=== PATIENT | female | born 1945 | race African-American/Black ===

== ENCOUNTER 2021-06-26 14:37 | Inpatient (IN) ==
[2021-06-26] MEDS ORDERED: SODIUM CHLORIDE 0.9% 1,000 ML IV STA (16:23)
[2021-06-26 17:34] LABS: Basophils % 0.7 % (0.0-0.8); Eosinophils % 0.7 % (0.00-10.9); Hematocrit 19.8 VOL% (35.7-47.0); Immature Granulocytes % 2.6 %; Immature Granulocytes Absolute 0.08 #; Lymphocytes # 0.8 10*3/uL (1.4-4.0); Lymphocytes % 27.1 % (21.3-54.2); Mean Corpuscular HGB Conc 29.8 GM/DL (32-36); Mean Corpuscular Volume 105.9 FL (87-102); Mean Platelet Volume 12.6 FL (9.6-12.0); Monocytes % 22.4 % (1.7-12.7); NRBC # 11.41 10*3/uL; Neutrophils % 46.5 % (38.7-73.9); Platelet Count 147 T/CUMM (130-400); Red Blood Count 1.87 MC/CUMM (3.8-5.5); Red Cell Distribution Width 23.6 % (9.3-17.3)
[2021-06-26 17:44] LABS: Hemoglobin 5.9 GM/DL (12.0-16.0)
[2021-06-26 18:00] LABS: Urine Appearance Clear (Clear); Urine Color Yellow (Yellow)
[2021-06-26 18:01] LABS: Bilirubin,Urine Large mg/dL (Negative); Blood, Urine Negative (Negative); Glucose,Urine (UA) Negative (Negative); Ketones,Urine Negative (Negative); Nitrite,Urine Negative (Negative); Protein,Urine Trace MG/DL; Urine Urobilinogen 0.2 EU/DL (<2.0)
[2021-06-26 20:02] LABS: Lymphocytes 42 % (20-55); Nucleated Red Blood Cells 283 (0-5); Segmented Neutrophils 55 % (50-85); Total Cells Counted 100
[2021-06-26 20:03] LABS: Anisocytosis 2+; Polychromasia 1+
[2021-06-26 20:04] LABS: Platelet Estimate Normal; Target Cells 1+
[2021-06-26 20:19] LABS: Albumin 1.4 G/DL (3.4-5.0); Osmolality,Calculated 298.2 MOS/KG (273-304); Potassium 4.8 MMOL/L (3.5-5.1); Total Protein 5.1 G/DL (6.4-8.2)
[2021-06-26 20:21] LABS: Bilirubin,Total 31.52 MG/DL (0.20-1.00)
[2021-06-26] MEDS ORDERED: BISACODYL 5 MG TABLET PO PRN (20:39)
[2021-06-26] MEDS ORDERED: ONDANSETRON 4 MG/2 ML VIAL IV PRN (20:39)
[2021-06-26] MEDS ORDERED: hydrALAZINE 20 MG/1 ML VIAL IV PRN (20:39)
[2021-06-26] MEDS ORDERED: GLUCAGON 1 MG VIAL IM PRN (20:39)
[2021-06-26] MEDS ORDERED: PROMETHAZINE 25 MG/1 ML VIAL IV PRN (20:39)
[2021-06-26] MEDS ORDERED: SODIUM CHLORIDE 0.9% 1,000 ML IV PRN (20:47)
[2021-06-26] MEDS ORDERED: DEXTROSE 10% 250 ML BAG IV PRN (20:50)
[2021-06-26] MEDS ORDERED: PROMETHAZINE INJ 12.5 MG in SODIUM CHLORIDE 0.9% 50 ML IV PRN (20:58)
[2021-06-26] MEDS ORDERED: oxyCODONE/ACETAMINOPHEN 5-325 MG TABLET PO PRN (21:20)
[2021-06-26] MEDS: INSULIN LISPRO 100 UNIT/ML SUBCUT SCH (22:56)
[2021-06-26] MEDS: DOCUSATE SODIUM 100 MG CAPSULE PO SCH (22:58)
[2021-06-27 08:24] LABS: Basophils % 0.4 % (0.0-0.8); Eosinophils % 0.8 % (0.00-10.9); Hematocrit 32.6 VOL% (35.7-47.0); Immature Granulocytes % 2.7 %; Immature Granulocytes Absolute 0.07 #; Lymphocytes # 1.1 10*3/uL (1.4-4.0); Lymphocytes % 42.8 % (21.3-54.2); Mean Corpuscular HGB Conc 31.9 GM/DL (32-36); Mean Corpuscular Volume 96.7 FL (87-102); Mean Platelet Volume 11.5 FL (9.6-12.0); NRBC # 13.95 10*3/uL; Neutrophils % 39.3 % (38.7-73.9); Platelet Count 159 T/CUMM (130-400); Red Cell Distribution Width 20.3 % (9.3-17.3); White Blood Count 2.6 T/CUMM (4-12)
[2021-06-27 08:41] LABS: Hemoglobin 10.4 GM/DL (12.0-16.0); Red Blood Count 3.37 MC/CUMM (3.8-5.5)
[2021-06-27] MEDS: INSULIN LISPRO 100 UNIT/ML SUBCUT SCH ×4 (08:48→21:01)
[2021-06-27] MEDS: SODIUM CHLORIDE 0.9% 1,000 ML IV SCH ×5 (08:49→21:40)
[2021-06-27 08:57] LABS: Albumin 1.6 G/DL (3.4-5.0); Calcium 9.8 MG/DL (8.5-10.1); Potassium 4.4 MMOL/L (3.5-5.1); Total Protein 5.6 G/DL (6.4-8.2)
[2021-06-27 09:00] LABS: Band Neutrophils 1 % (0-10); Eosinophils 2 % (0-10); Hypochromia Slight; Lymphocytes 46 % (20-55); Microcytosis Slight; Nucleated Red Blood Cells 478 (0-5); Platelet Estimate Adequate; Segmented Neutrophils 40 % (50-85); Total Cells Counted 100
[2021-06-27] MEDS ORDERED: LEVOTHYROXINE 88 MCG TABLET PO SCH (09:00)
[2021-06-27 09:02] LABS: Bilirubin,Total 29.6 MG/DL (0.20-1.00)
[2021-06-27] MEDS: CALCIUM (CARBONATE) 500 MG TABLET PO SCH (09:23)
[2021-06-27] MEDS: CYANOCOBALAMIN 500 MCG TABLET PO SCH (09:23)
[2021-06-27] MEDS: METOPROLOL SUCCINATE XL 25 MG TABLET PO SCH (09:23)
[2021-06-27] MEDS: NYSTATIN 500,000 UNIT/5 ML UDCUP SWISH/SWAL SCH ×4 (09:23→20:29)
[2021-06-27] MEDS: DOCUSATE SODIUM 100 MG CAPSULE PO SCH ×2 (09:23→20:29)
[2021-06-27] MEDS: CHOLECALCIFEROL 400 UNIT TABLET PO SCH (09:23)
[2021-06-27] MEDS: ASPIRIN EC 81 MG TABLET PO SCH (09:23)
[2021-06-27] MEDS: allopurinoL 300 MG TABLET PO SCH (09:23)
[2021-06-27] MEDS: FILGRASTIM-SNDZ 480 MCG/0.8 ML SYRINGE SUBCUT SCH (12:27)
[2021-06-27] MEDS ORDERED: diphenhydrAMINE CAP 25 MG CAPSULE PO PRN (12:39)
[2021-06-27] MEDS: COLESTIPOL 1 GM TABLET PO SCH (20:29)
[2021-06-27] MEDS: POLYETHYLENE GLYCOL POWDER 17 GM PACK PO SCH (20:32)
[2021-06-28 05:22] LABS: Basophils % 0.3 % (0.0-0.8); Eosinophils # 0.1 10*3/uL (0.0-0.87); Eosinophils % 3.6 % (0.00-10.9); Hematocrit 29.1 VOL% (35.7-47.0); Hemoglobin 9.3 GM/DL (12.0-16.0); Immature Granulocytes % 32.1 %; Immature Granulocytes Absolute 0.97 #; Lymphocytes # 0.9 10*3/uL (1.4-4.0); Lymphocytes % 29.5 % (21.3-54.2); Mean Corpuscular Volume 98.6 FL (87-102); Mean Platelet Volume 12.1 FL (9.6-12.0); Monocytes % 26.8 % (1.7-12.7); NRBC # 20.01 10*3/uL; Neutrophils % 7.7 % (38.7-73.9); Platelet Count 172 T/CUMM (130-400); Red Blood Count 2.95 MC/CUMM (3.8-5.5); Red Cell Distribution Width 22.6 % (9.3-17.3)
[2021-06-28 05:49] LABS: Albumin 1.3 G/DL (3.4-5.0); Calcium 9.2 MG/DL (8.5-10.1); Osmolality,Calculated 292.7 MOS/KG (273-304); Total Protein 4.9 G/DL (6.4-8.2)
[2021-06-28] MEDS: SODIUM CHLORIDE 0.9% 1,000 ML IV SCH (05:49)
[2021-06-28] MEDS: LEVOTHYROXINE 50 MCG TABLET PO SCH (05:50)
[2021-06-28 05:54] LABS: Band Neutrophils 1 % (0-10); Eosinophils 4 % (0-10); Hypochromia 1+; Lymphocytes 48 % (20-55); Microcytosis 1+; Nucleated Red Blood Cells 720 (0-5); Platelet Estimate Adequate; Segmented Neutrophils 33 % (50-85); Total Cells Counted 100
[2021-06-28] MEDS ORDERED: SODIUM BICARBONATE 50 MEQ/50 ML VIAL IV ONE (07:46)
[2021-06-28] MEDS: INSULIN LISPRO 100 UNIT/ML SUBCUT SCH ×4 (08:32→20:36)
[2021-06-28] MEDS: SODIUM BICARB INJ 50 MEQ in SODIUM CHLORIDE 0.45% 1,000 ML IV SCH ×2 (09:28→20:52)
[2021-06-28] MEDS: PIPERACILLIN/TAZOBACTAM 3,375 MG in SODIUM CHLORIDE 0.9% 100 ML IV SCH ×2 (09:28→16:09)
[2021-06-28] MEDS: allopurinoL 300 MG TABLET PO SCH (09:29)
[2021-06-28] MEDS: NYSTATIN 500,000 UNIT/5 ML UDCUP SWISH/SWAL SCH ×4 (09:29→20:53)
[2021-06-28] MEDS: CYANOCOBALAMIN 500 MCG TABLET PO SCH (09:29)
[2021-06-28] MEDS: CALCIUM (CARBONATE) 500 MG TABLET PO SCH (09:29)
[2021-06-28] MEDS: METOPROLOL SUCCINATE XL 25 MG TABLET PO SCH (09:29)
[2021-06-28] MEDS: POLYETHYLENE GLYCOL POWDER 17 GM PACK PO SCH ×3 (09:29→20:54)
[2021-06-28] MEDS: COLESTIPOL 1 GM TABLET PO SCH ×2 (09:29→20:53)
[2021-06-28] MEDS: DOCUSATE SODIUM 100 MG CAPSULE PO SCH ×2 (09:29→20:53)
[2021-06-28] MEDS: ASPIRIN EC 81 MG TABLET PO SCH (09:29)
[2021-06-28] MEDS: FILGRASTIM-SNDZ 480 MCG/0.8 ML SYRINGE SUBCUT SCH (09:29)
[2021-06-28] MEDS: CHOLECALCIFEROL 400 UNIT TABLET PO SCH (09:29)
[2021-06-29] MEDS: PIPERACILLIN/TAZOBACTAM 3,375 MG in SODIUM CHLORIDE 0.9% 100 ML IV SCH ×3 (01:30→16:11)
[2021-06-29 04:55] LABS: Basophils % 0.5 % (0.0-0.8); Eosinophils # 0.1 10*3/uL (0.0-0.87); Eosinophils % 1.3 % (0.00-10.9); Hematocrit 25.3 VOL% (35.7-47.0); Immature Granulocytes Absolute 0.26 #; Lymphocytes # 1.2 10*3/uL (1.4-4.0); Lymphocytes % 14.1 % (21.3-54.2); Mean Corpuscular HGB Conc 31.6 GM/DL (32-36); Mean Corpuscular Volume 101.2 FL (87-102); Mean Platelet Volume 11.9 FL (9.6-12.0); Monocytes % 13.8 % (1.7-12.7); NRBC # 17.35 10*3/uL; Neutrophils % 67.3 % (38.7-73.9); Platelet Count 176 T/CUMM (130-400); Red Cell Distribution Width 25.2 % (9.3-17.3); White Blood Count 8.6 T/CUMM (4-12)
[2021-06-29 05:21] LABS: Band Neutrophils 6 % (0-10); Eosinophils 3 % (0-10); Hypochromia 1+; Lymphocytes 29 % (20-55); Nucleated Red Blood Cells 278 (0-5); Platelet Estimate Adequate; Segmented Neutrophils 49 % (50-85); Total Cells Counted 100
[2021-06-29 05:22] LABS: Macrocytosis Slight; Polychromasia Slight
[2021-06-29 05:34] LABS: Albumin 1.1 G/DL (3.4-5.0); Calcium 8.3 MG/DL (8.5-10.1); Osmolality,Calculated 287.5 MOS/KG (273-304); Potassium 3.5 MMOL/L (3.5-5.1); Total Protein 4.2 G/DL (6.4-8.2)
[2021-06-29 05:36] LABS: Bilirubin,Total 26.5 MG/DL (0.20-1.00)
[2021-06-29] MEDS: SODIUM BICARB INJ 50 MEQ in SODIUM CHLORIDE 0.45% 1,000 ML IV SCH (05:54)
[2021-06-29] MEDS: LEVOTHYROXINE 50 MCG TABLET PO SCH (05:55)
[2021-06-29] MEDS: METOPROLOL SUCCINATE XL 25 MG TABLET PO SCH (09:37)
[2021-06-29] MEDS: POLYETHYLENE GLYCOL POWDER 17 GM PACK PO SCH ×3 (09:37→20:40)
[2021-06-29] MEDS: SODIUM BICARBONATE 650 MG TABLET PO SCH ×2 (09:37→20:40)
[2021-06-29] MEDS: CALCIUM (CARBONATE) 500 MG TABLET PO SCH (09:37)
[2021-06-29] MEDS: ASPIRIN EC 81 MG TABLET PO SCH (09:37)
[2021-06-29] MEDS: FILGRASTIM-SNDZ 480 MCG/0.8 ML SYRINGE SUBCUT SCH (09:37)
[2021-06-29] MEDS: DOCUSATE SODIUM 100 MG CAPSULE PO SCH ×2 (09:38→20:40)
[2021-06-29] MEDS: predniSONE 10 MG TABLET PO SCH (09:38)
[2021-06-29] MEDS: CYANOCOBALAMIN 500 MCG TABLET PO SCH (09:38)
[2021-06-29] MEDS: COLESTIPOL 1 GM TABLET PO SCH ×2 (09:38→20:39)
[2021-06-29] MEDS: DEXTROSE 5% NACL 0.45% 1,000 ML IV SCH ×2 (09:45→23:21)
[2021-06-29] MEDS: allopurinoL 300 MG TABLET PO SCH (09:45)
[2021-06-29] MEDS: CHOLECALCIFEROL 400 UNIT TABLET PO SCH (09:45)
[2021-06-29] MEDS: INSULIN LISPRO 100 UNIT/ML SUBCUT SCH ×2 (10:29→12:00)
[2021-06-30] MEDS: PIPERACILLIN/TAZOBACTAM 3,375 MG in SODIUM CHLORIDE 0.9% 100 ML IV SCH ×2 (01:33→11:11)
[2021-06-30 05:18] LABS: Basophils # 0.1 10*3/uL (0.0-0.2); Basophils % 0.3 % (0.0-0.8); Eosinophils # 0.2 10*3/uL (0.0-0.87); Eosinophils % 0.5 % (0.00-10.9); Hematocrit 21.3 VOL% (35.7-47.0); Hemoglobin 6.7 GM/DL (12.0-16.0); Immature Granulocytes % 10.4 %; Immature Granulocytes Absolute 3.55 #; Lymphocytes # 2.2 10*3/uL (1.4-4.0); Lymphocytes % 6.6 % (21.3-54.2); Mean Corpuscular HGB Conc 31.5 GM/DL (32-36); Mean Corpuscular Volume 101.9 FL (87-102); Mean Platelet Volume 11.5 FL (9.6-12.0); Monocytes % 6.3 % (1.7-12.7); NRBC # 15.42 10*3/uL; Neutrophils % 75.9 % (38.7-73.9); Platelet Count 195 T/CUMM (130-400); Red Blood Count 2.09 MC/CUMM (3.8-5.5); Red Cell Distribution Width 25.2 % (9.3-17.3)
[2021-06-30] MEDS: LEVOTHYROXINE 50 MCG TABLET PO SCH (05:50)
[2021-06-30 06:03] LABS: Band Neutrophils 46 % (0-10); Lymphocytes 10 % (20-55); Metamyelocytes 4 %; Myelocytes 4 %; Nucleated Red Blood Cells 70 (0-5); Platelet Estimate Normal; Segmented Neutrophils 31 % (50-85); Total Cells Counted 100
[2021-06-30 06:04] LABS: Anisocytosis 3+; Macrocytosis 2+; Poikilocytosis Slight; Polychromasia Slight; Target Cells Few; Tear Drop Cells Few
[2021-06-30 06:05] LABS: Toxic Granulation 1+
[2021-06-30 06:17] LABS: Calcium 8.4 MG/DL (8.5-10.1); Potassium 3.1 MMOL/L (3.5-5.1); Total Protein 3.9 G/DL (6.4-8.2)
[2021-06-30 06:19] LABS: Bilirubin,Total 25.6 MG/DL (0.20-1.00)
[2021-06-30] MEDS ORDERED: SODIUM CHLORIDE 0.9% 1,000 ML IV PRN (07:55)
[2021-06-30] MEDS: predniSONE 10 MG TABLET PO SCH (10:32)
[2021-06-30] MEDS: SODIUM BICARBONATE 650 MG TABLET PO SCH ×2 (10:32→21:18)
[2021-06-30] MEDS: POLYETHYLENE GLYCOL POWDER 17 GM PACK PO SCH ×3 (10:33→21:18)
[2021-06-30] MEDS: METOPROLOL SUCCINATE XL 25 MG TABLET PO SCH (10:33)
[2021-06-30] MEDS: DOCUSATE SODIUM 100 MG CAPSULE PO SCH ×2 (10:33→21:18)
[2021-06-30] MEDS: COLESTIPOL 1 GM TABLET PO SCH ×2 (10:33→21:18)
[2021-06-30] MEDS: CALCIUM (CARBONATE) 500 MG TABLET PO SCH (10:33)
[2021-06-30] MEDS: CYANOCOBALAMIN 500 MCG TABLET PO SCH (10:33)
[2021-06-30] MEDS: allopurinoL 300 MG TABLET PO SCH (10:33)
[2021-06-30] MEDS: CHOLECALCIFEROL 400 UNIT TABLET PO SCH (10:37)
[2021-06-30] MEDS ORDERED: POTASSIUM CHLORIDE 20 MEQ TABLET PO ONE (11:07)
[2021-06-30] MEDS: ASPIRIN EC 81 MG TABLET PO SCH (11:10)
[2021-07-01] MEDS: LEVOTHYROXINE 50 MCG TABLET PO SCH (05:44)
[2021-07-01 07:45] LABS: Basophils # 0.2 10*3/uL (0.0-0.2); Basophils % 0.4 % (0.0-0.8); Eosinophils # 0.1 10*3/uL (0.0-0.87); Eosinophils % 0.1 % (0.00-10.9); Hematocrit 28.7 VOL% (35.7-47.0); Hemoglobin 9.3 GM/DL (12.0-16.0); Immature Granulocytes Absolute 5.32 #; Lymphocytes # 1.8 10*3/uL (1.4-4.0); Lymphocytes % 4.1 % (21.3-54.2); Mean Corpuscular HGB Conc 32.4 GM/DL (32-36); Mean Corpuscular Volume 89.4 FL (87-102); Mean Platelet Volume 11.8 FL (9.6-12.0); NRBC # 8.93 10*3/uL; Neutrophils % 75.4 % (38.7-73.9); Platelet Count 186 T/CUMM (130-400); Red Blood Count 3.21 MC/CUMM (3.8-5.5); Red Cell Distribution Width 22.9 % (9.3-17.3)
[2021-07-01 07:47] LABS: White Blood Count 44.2 T/CUMM (4-12)
[2021-07-01 08:09] LABS: Band Neutrophils 4 % (0-10); Hypochromia 1+; Lymphocytes 8 % (20-55); Macrocytosis Slight; Nucleated Red Blood Cells 28 (0-5); Platelet Estimate Adequate; Segmented Neutrophils 80 % (50-85); Total Cells Counted 100
[2021-07-01 08:16] LABS: Calcium 8.3 MG/DL (8.5-10.1); Potassium 4.3 MMOL/L (3.5-5.1)
[2021-07-01 08:24] LABS: Albumin 1.1 G/DL (3.4-5.0); Calcium 8.3 MG/DL (8.5-10.1); Osmolality,Calculated 279.1 MOS/KG (273-304); Potassium 4.2 MMOL/L (3.5-5.1); Total Protein 4.3 G/DL (6.4-8.2)
[2021-07-01] MEDS: POLYETHYLENE GLYCOL POWDER 17 GM PACK PO SCH ×2 (10:05→15:47)
[2021-07-01] MEDS: DEXTROSE 5% NACL 0.45% 1,000 ML IV SCH ×2 (10:05→15:46)
[2021-07-01] MEDS: COLESTIPOL 1 GM TABLET PO SCH (10:06)
[2021-07-01] MEDS: METOPROLOL SUCCINATE XL 25 MG TABLET PO SCH (10:06)
[2021-07-01] MEDS: allopurinoL 300 MG TABLET PO SCH (10:06)
[2021-07-01] MEDS: CALCIUM (CARBONATE) 500 MG TABLET PO SCH (10:06)
[2021-07-01] MEDS: CHOLECALCIFEROL 400 UNIT TABLET PO SCH (10:06)
[2021-07-01] MEDS: SODIUM BICARBONATE 650 MG TABLET PO SCH (10:06)
[2021-07-01] MEDS: CYANOCOBALAMIN 500 MCG TABLET PO SCH (10:07)
[2021-07-01] MEDS: predniSONE 10 MG TABLET PO SCH (10:07)
[2021-07-01] MEDS: DOCUSATE SODIUM 100 MG CAPSULE PO SCH (10:07)
[2021-07-01 12:07] VITALS: BP 124/57
== END 2021-07-01 15:30 | disposition hospice, home (50) | DRG 809 ==
LOC: N.ED 14:37 → SUATTDRO 20:39 → N.EDINP 20:39 → N.TELEN 23:30
PROVIDERS: ADMIT Internal Medicine; ATTEND Emergency Medicine